=== PATIENT | male | born 1980 | race Caucasian/White ===

== ENCOUNTER 2018-05-07 13:05 | Emergency (ER) | payer MEDICARE ==
[2018-05-07] MEDS ORDERED: SODIUM CHLORIDE 0.9% 1000ML 1,000 ML IVS PRN (13:17)
[2018-05-07] MEDS ORDERED: SODIUM CHLORIDE 0.9% (FLUSH) 10 ML SYG IV PRN (13:17)
--- NOTE | 2018-05-07 13:22 | ED.PDOC ---
History of Present Illness - General Chief Complaint: General Stated Complaint: took seroquel thinking they were ibuprofen Time Seen by Provider: 05/07/18 13:21 Source: patient, family - mom Exam Limitations: no limitations - History of Present Illness Initial Comments: Almas Yoon 37 y/o male stated that he accidentally took 2 seroquel tablet dosage not known instead of Ibuprofen for his toothache.The pill bottle was given by his uncle and according to mom medicine inside the pill bottle was mixed with several medicines.He felt lightheaded;also felt heart was racing.Denies syncopal episode;no N/V. Nurse called up POISON CONTROL. Timing/Duration: 1-3 hours Severity: moderate Improving Factors: nothing Worsening Factors: nothing Associated Symptoms: other - see hpi Allergies/Adverse Reactions: Allergies Penicillins Allergy (Verified 05/07/18 13:08) Home Medications: Ambulatory Orders Clindamycin HCl 300 mg PO BID 7 Days #42 cap 05/07/18 Tramadol HCl 50 mg PO TID PRN #10 tab 05/07/18 Review of Systems - Review of Systems Constitutional: States: no symptoms reported EENTM: States: no symptoms reported Respiratory: States: no symptoms reported Cardiology: States: no symptoms reported Gastrointestinal/Abdominal: States: no symptoms reported Past Medical History (General) - Patient Medical History Hx Seizures: No Hx Stroke: No Hx Dementia: No Hx Asthma: No Hx of COPD: No Hx Cardiac Disorders: No Hx Congestive Heart Failure: No Hx Pacemaker: No Hx Hypertension: Yes Hx Thyroid Disease: No Hx Diabetes: Yes - type 1 Hx Renal Disease: No Hx Cancer: No Hx of HIV: No Hx Hepatitis C: No Hx MRSA: No Surgical History: cholecystectomy, other - shoulder,ankle - Vaccination History Hx Tetanus, Diphtheria Vaccination: Yes Hx Influenza Vaccination: No Hx Pneumococcal Vaccination: No Immunizations Up to Date: No - Social History Hx Tobacco Use: No Hx Chewing Tobacco Use: No Hx Alcohol Use: No Hx Substance Use: No Hx Substance Use Treatment: No Hx Depression: No Feels Threatened In Home Enviroment: No Feels Threatened In a Relationship: No Hx Physical Abuse: No Hx Emotional Abuse: No Hx Suspected Abuse: No - Female History Patient is a Female of Child Bearing Age (10 -59 yrs old): No Patient : No Family Medical History - Family History Mother Family History: No Known Living Status: Still Living Hx Family Asthma: No Hx Family Congestive Heart Failure: No Physical Exam - Physical Exam General Appearance: Comfortable, No apparent distress, Other - somnolent Eye Exam: bilateral normal Ears, Nose, Throat: hearing grossly normal, normal ENT inspection, normal pharynx, other - multiple decayed teeth Neck: full range of motion, supple Respiratory: lungs clear, normal breath sounds, no respiratory distress Cardiovascular/Chest: normal peripheral pulses, no murmur, tachycardia Peripheral Pulses: radial,right: 2+, radial,left: 2+ Gastrointestinal/Abdominal: non tender, soft Back Exam: no CVA tenderness, no vertebral tenderness Extremity: no pedal edema, no calf tenderness Neurologic: no motor/sensory deficits, oriented x 3 Skin Exam: normal color, warm/dry Progress - Progress Progress: 05/07/18 14:17 Vital Signs - 8 hr 05/07/18 13:13 Pulse Rate [ 132 H Left Radial] Respiratory 16 Rate Blood Pressure 89/47 [Left Arm] O2 Sat by Pulse 98 Oximetry 05/07/18 16:06 Able to eat meal served;no N/V;more alert 05/07/18 18:09 Patient has stable vital signs on discharge able to finish his meal this afternoon. - Results/Orders Results/Orders: 05/07/18 13:15 EKG STAT 05/07/18 13:17 Sodium Chloride 0.9% (Flush) [Saline Flush Syringe] 10 ml IV PRN PRN 05/07/18 13:18 IV Care:Saline Lock per Protoc QSHIFT Telemetry Q4H URINE DRUG SCREEN, 7 ASSAY Stat 05/07/18 15:00 Be Our Guest Tray ([facility] [place]) ONCE Laboratory Results - last 24 hr 05/07/18 05/07/18 05/07/18 13:10 13:27 13:27 WBC 8.2 RBC 4.44 L Hgb 13.7 L Hct 40.4 L MCV 90.8 MCH 30.7 MCHC 33.9 RDW 14.3 Plt Count 278 MPV 7.7 Absolute Neuts (auto) 5.90 Absolute Lymphs (auto) 1.70 Absolute Monos (auto) 0.50 Absolute Eos (auto) 0.10 Absolute Basos (auto) 0.00 Neutrophils % 71.7 Lymphocytes % 20.5 Monocytes % 6.3 Eosinophils % 1.1 Basophils % 0.4 PT INR PTT (SP) Sodium 134 L Potassium 4.2 Chloride 98 L Carbon Dioxide 23 Anion Gap 17.2 BUN 22 H Creatinine 1.36 H BUN/Creatinine Ratio 16.2 POC Glucose 189 H Random Glucose 184 H Serum Osmolality 276.3 Calcium 8.3 L Total Bilirubin 0.6 AST 49 H ALT 74 H Alkaline Phosphatase 233 H Creatine Kinase 27 L CK-MB (CK-2) 1.6 CK-MB (CK-2) % Not Reportable Troponin I < 0.02 Serum Total Protein 6.7 Albumin 3.5 Globulin 3.2 Albumin/Globulin Ratio 1.1 Urine Color Urine Appearance Urine pH Ur Specific [place] Urine Protein Urine Glucose (UA) Urine Ketones Urine Blood Urine Nitrite Urine Bilirubin Urine Urobilinogen Ur Leukocyte Esterase Urine RBC Urine WBC Ur Epithelial Cells Amorphous Sediment Urine Bacteria Salicylates < 4.0 Acetaminophen < 10.0 L Ethyl Alcohol 05/07/18 05/07/18 05/07/18 13:27 13:27 15:27 WBC RBC Hgb Hct MCV MCH MCHC RDW Plt Count MPV Absolute Neuts (auto) Absolute Lymphs (auto) Absolute Monos (auto) Absolute Eos (auto) Absolute Basos (auto) Neutrophils % Lymphocytes % Monocytes % Eosinophils % Basophils % PT 8.9 L INR < 0.90 L PTT (SP) 22.3 Sodium Potassium Chloride Carbon Dioxide Anion Gap BUN Creatinine BUN/Creatinine Ratio POC Glucose Random Glucose Serum Osmolality Calcium Total Bilirubin AST ALT Alkaline Phosphatase Creatine Kinase CK-MB (CK-2) CK-MB (CK-2) % Troponin I Serum Total Protein Albumin Globulin Albumin/Globulin Ratio Urine Color Yellow Urine Appearance Sl cloudy Urine pH 8.5 H Ur Specific [place] 1.015 Urine Protein 30 Urine Glucose (UA) Negative Urine Ketones Negative Urine Blood Negative Urine Nitrite Negative Urine Bilirubin Negative Urine Urobilinogen 0.2 Ur Leukocyte Esterase Trace H Urine RBC 1-3 Urine WBC 1-3 Ur Epithelial Cells 1-3 Amorphous Sediment 1+ Urine Bacteria Rare Salicylates Acetaminophen Ethyl Alcohol 0.00 05/07/18 13:15 EKG STAT 05/07/18 13:17 Sodium Chloride 0.9% (Flush) [Saline Flush Syringe] 10 ml IV PRN PRN 05/07/18 13:18 IV Care:Saline Lock per Protoc QSHIFT Telemetry Q4H 05/07/18 15:00 Be Our Guest Tray ([facility]) ONCE Laboratory Results - last 24 hr 05/07/18 05/07/18 05/07/18 13:10 13:27 13:27 WBC 8.2 RBC 4.44 L Hgb 13.7 L Hct 40.4 L MCV 90.8 MCH 30.7 MCHC 33.9 RDW 14.3 Plt Count 278 MPV 7.7 Absolute Neuts (auto) 5.90 Absolute Lymphs (auto) 1.70 Absolute Monos (auto) 0.50 Absolute Eos (auto) 0.10 Absolute Basos (auto) 0.00 Neutrophils % 71.7 Lymphocytes % 20.5 Monocytes % 6.3 Eosinophils % 1.1 Basophils % 0.4 PT INR PTT (SP) Sodium 134 L Potassium 4.2 Chloride 98 L Carbon Dioxide 23 Anion Gap 17.2 BUN 22 H Creatinine 1.36 H BUN/Creatinine Ratio 16.2 POC Glucose 189 H Random Glucose 184 H Serum Osmolality 276.3 Calcium 8.3 L Total Bilirubin 0.6 AST 49 H ALT 74 H Alkaline Phosphatase 233 H Creatine Kinase 27 L CK-MB (CK-2) 1.6 CK-MB (CK-2) % Not Reportable Troponin I < 0.02 Serum Total Protein 6.7 Albumin 3.5 Globulin 3.2 Albumin/Globulin Ratio 1.1 Urine Color Urine Appearance Urine pH Ur Specific [place] Urine Protein Urine Glucose (UA) Urine Ketones Urine Blood Urine Nitrite Urine Bilirubin Urine Urobilinogen Ur Leukocyte Esterase Urine RBC Urine WBC Ur Epithelial Cells Amorphous Sediment Urine Bacteria Salicylates < 4.0 Urine Opiates Screen Acetaminophen < 10.0 L Urine Barbiturates Ur Phencyclidine Scrn U Amphetamin/Meth Scrn U Benzodiazepines Scrn U Cocaine Metab Screen U Cannabinoids Screen Ethyl Alcohol 05/07/18 05/07/18 05/07/18 13:27 13:27 15:27 WBC RBC Hgb Hct MCV MCH MCHC RDW Plt Count MPV Absolute Neuts (auto) Absolute Lymphs (auto) Absolute Monos (auto) Absolute Eos (auto) Absolute Basos (auto) Neutrophils % Lymphocytes % Monocytes % Eosinophils % Basophils % PT 8.9 L INR < 0.90 L PTT (SP) 22.3 Sodium Potassium Chloride Carbon Dioxide Anion Gap BUN Creatinine BUN/Creatinine Ratio POC Glucose Random Glucose Serum Osmolality Calcium Total Bilirubin AST ALT Alkaline Phosphatase Creatine Kinase CK-MB (CK-2) CK-MB (CK-2) % Troponin I Serum Total Protein Albumin Globulin Albumin/Globulin Ratio Urine Color Urine Appearance Urine pH Ur Specific [place] Urine Protein Urine Glucose (UA) Urine Ketones Urine Blood Urine Nitrite Urine Bilirubin Urine Urobilinogen Ur Leukocyte Esterase Urine RBC Urine WBC Ur Epithelial Cells Amorphous Sediment Urine Bacteria Salicylates Urine Opiates Screen Negative Acetaminophen Urine Barbiturates Negative Ur Phencyclidine Scrn Negative U Amphetamin/Meth Scrn Negative U Benzodiazepines Scrn Negative U Cocaine Metab Screen Negative U Cannabinoids Screen Negative Ethyl Alcohol 0.00 05/07/18 05/07/18 15:27 18:10 WBC RBC Hgb Hct MCV MCH MCHC RDW Plt Count MPV Absolute Neuts (auto) Absolute Lymphs (auto) Absolute Monos (auto) Absolute Eos (auto) Absolute Basos (auto) Neutrophils % Lymphocytes % Monocytes % Eosinophils % Basophils % PT INR PTT (SP) Sodium Potassium Chloride Carbon Dioxide Anion Gap BUN Creatinine BUN/Creatinine Ratio POC Glucose 235 H Random Glucose Serum Osmolality Calcium Total Bilirubin AST ALT Alkaline Phosphatase Creatine Kinase CK-MB (CK-2) CK-MB (CK-2) % Troponin I Serum Total Protein Albumin Globulin Albumin/Globulin Ratio Urine Color Yellow Urine Appearance Sl cloudy Urine pH 8.5 H Ur Specific [place] 1.015 Urine Protein 30 Urine Glucose (UA) Negative Urine Ketones Negative Urine Blood Negative Urine Nitrite Negative Urine Bilirubin Negative Urine Urobilinogen 0.2 Ur Leukocyte Esterase Trace H Urine RBC 1-3 Urine WBC 1-3 Ur Epithelial Cells 1-3 Amorphous Sediment 1+ Urine Bacteria Rare Salicylates Urine Opiates Screen Acetaminophen Urine Barbiturates Ur Phencyclidine Scrn U Amphetamin/Meth Scrn U Benzodiazepines Scrn U Cocaine Metab Screen U Cannabinoids Screen Ethyl Alcohol - EKG/XRAY/CT EKG: Sinus, Tachy Comments: HR-128 XRAY: Gallbladder Sono-hepatic steatosis Departure - Departure Clinical Impression: Somnolence, Tachycardia, GABRIEL (nonalcoholic steatohepatitis), Tooth ache Drug ingestion, accidental Qualifiers: Encounter type: initial encounter Qualified Code(s): T50.901A - Poisoning by unspecified drugs, medicaments and biological substances, accidental (unintentional), initial encounter Diabetes Qualifiers: Diabetes mellitus type: type 1 Diabetes mellitus complication status: with unspecified complications Qualified Code(s): E10.8 - Type 1 diabetes mellitus with unspecified complications Time of Disposition: 18:10 Disposition: Discharge to Home or Self Care Condition: Fair Departure Forms: ED Discharge - Pt. Copy, Patient Portal Self Enrollment Instructions: Nonalcoholic Steatohepatitis (GABRIEL), Tooth Abscess (DC), Nonalcoholic Fatty Liver Disease (DC), Dental Pain (DC), Dental Pain, Quetiapine Prescriptions: Clindamycin HCl 300 mg PO BID 7 Days #42 cap Tramadol HCl 50 mg PO TID PRN #10 tab PRN Reason: Pain Home Medications: Ambulatory Orders Clindamycin HCl 300 mg PO BID 7 Days #42 cap 05/07/18 Tramadol HCl 50 mg PO TID PRN #10 tab 05/07/18 Additional Instructions: Continue with all home medications;Keep appointment with your primary Md in am 08 May 2018;return to ER as needed;Need also to see Dentist GORGE
[2018-05-07] MEDS ORDERED: SODIUM CHLORIDE 0.9% 1000ML 1,000 ML IVS ONE ×2 (13:23→13:33)
[2018-05-07] MEDS ORDERED: LACTATED RINGERS 1,000 ML ONE (14:07)
[2018-05-07] MEDS ORDERED: LACTATED RINGERS 1,000 ML IVS ONE (14:10)
--- NOTE | 2018-05-07 15:57 | US ---
EXAM DESCRIPTION: Abdomen,Limited: ULTRASOUND. CLINICAL HISTORY: abnormal LFT COMPARISON: None. TECHNIQUE: Transabdominal scannin-dimensional and Doppler modes. FINDINGS: Gallbladder: Surgically removed. No fluid in the gallbladder fossa. Non-tender with transducer pressure. Common bile duct: caliber 2.6 mm within normal limits. Liver: Heterogeneously increased echogenicity; contour liver capsule smooth where seen. No fluid around the liver. Intrahepatic biliary ducts normal caliber. Doppler hepatopedal flow and normal caliber portal vein.. Long axis right lobe 16.7 cm. Pancreas: normal size and echogenicity. Duct not seen. abdominal aorta: Normal caliber from the proximal segment to the distal bifurcation.. IVC: visualized and normal caliber. Right kidney: long axis measures 11.5 cm. Heterogeneous Echogenicity, less than the liver. Normal cortical thickness. No hydronephrosis, but minimal prominence of the right renal pelvis. Proximal right ureter not seen. IMPRESSION: 1. Borderline hepatic enlargement with mild steatosis. Normal ducts in vascularity. Smooth capsule with no ascites. 2. Prior cholecystectomy. Normal common bile duct caliber. Nontender scanning. Pancreas unremarkable. 3. Right kidney prominent extrarenal pelvis, likely hydronephrosis. Normal caliber of the abdominal aorta and IVC. Electronically signed by: Tapan Heck MD 05/07/2018 3:54 PM [facility]
[2018-05-07] MEDS ORDERED: traMADol HCL 50 MG TAB PO ONE (18:07)
[2018-05-07] MEDS ORDERED: CLINDAMYCIN HCL CAP 150 MG CAP PO ONE (18:07)
[2018-05-07 18:12] VITALS: BP 114/71; O2SAT 99
== END 2018-05-07 18:30 | disposition home or self-care (01) ==
LOC: ER 13:05
DX: T43.591A Poisoning by other antipsychotics and neuroleptics, accidental (unintentional), initial encounter (principal); R40.0 Somnolence; K75.81 Nonalcoholic steatohepatitis (NASH); K02.9 Dental caries, unspecified; E10.8 Type 1 diabetes mellitus with unspecified complications; I10 Essential (primary) hypertension; R42 Dizziness and giddiness; Z79.899 Other long term (current) drug therapy; Z88.0 Allergy status to penicillin
CPT/HCPCS: 36416; 76775; 80053; 80307; 80320; 80329; 81001; 82550; 82553; 82948; 84484; 85025; 85610; 85730; 93005; J7030; J7120

== ENCOUNTER 2018-06-20 15:12 | Observation (INO) | payer MEDICARE ==
[2018-06-20] MEDS ORDERED: SODIUM CHLORIDE 0.9% 1000ML 1,000 ML IVS ONE ×2 (15:22→16:45)
[2018-06-20] MEDS ORDERED: ONDANSETRON INJ 4 MG/2 ML VIAL IV ONE (15:23)
--- NOTE | 2018-06-20 15:58 | ED.PDOC ---
History of Present Illness - General Chief Complaint: GI Problem Stated Complaint: Pt complains of nausea and vomitting x 12 times Time Seen by Provider: 06/20/18 15:36 Information Source: patient Exam Limitations: no limitations - History of Present Illness Initial Comments: HE HAS INSULIN REQUIRING DIABETES MELLITUS, AND HAS BEEN VOMITING SINCE 11 AM. HE ALSO VOICES THAT HE IS AN ALCOHOLIC AND THAT HE QUIT COLD TURKEY 6 DAYS AGO. SOME OF THE EMESIS HAD SOME BLOOD. THE ALSO C/O EPIGASTIC PAIN, DENIES ANY FEVER. Abdominal Pain Onset Location: epigastric Pain Radiation: no radiation Quality: moderate, intermittent Timing/Duration: 4-6 hours Improving Factors: nothing Worsening Factors: eating Associated Symptoms: denies symptoms Review of Systems - Review of Systems Constitutional: States: no symptoms reported EENTM: States: no symptoms reported Respiratory: States: no symptoms reported Cardiology: States: no symptoms reported Gastrointestinal/Abdominal: States: abdominal pain, nausea, vomiting Genitourinary: States: no symptoms reported Musculoskeletal: States: no symptoms reported Skin: States: no symptoms reported Neurological: States: no symptoms reported Endocrine: States: no symptoms reported Hematologic/Lymphatic: States: no symptoms reported Past Medical History (General) - Patient Medical History Hx Seizures: No Hx Stroke: No Hx Dementia: No Hx Asthma: No Hx of COPD: No Hx Cardiac Disorders: No Hx Congestive Heart Failure: No Hx Pacemaker: No Hx Hypertension: Yes Hx Thyroid Disease: No Hx Diabetes: Yes - type 1 Hx Gastroesophageal Reflux: Yes Hx Renal Disease: No Hx Cancer: No Hx of HIV: No Hx Hepatitis C: No Hx MRSA: No Surgical History: cholecystectomy, tonsillectomy - Vaccination History Hx Tetanus, Diphtheria Vaccination: Yes Hx Influenza Vaccination: Yes Hx Pneumococcal Vaccination: No - Social History Hx Tobacco Use: Yes Cigarettes Packs Per Day: 1 Hx Chewing Tobacco Use: No Hx Alcohol Use: Yes Hx Substance Use: No Hx Substance Use Treatment: No Hx Depression: No Hx Physical Abuse: No Hx Emotional Abuse: No Hx Suspected Abuse: No - Female History Patient is a Female of Child Bearing Age (10 -59 yrs old): No Patient : No - Triage Comment ED Triage Comment: Pt states he has been vomitting since noon and has a hx of alcohol abuse where he tried to quit cold turkey 5 days ago. Family Medical History - Family History Mother Family History: No Known Living Status: Still Living Hx Family Asthma: No Hx Family Congestive Heart Failure: No Hx Family Stroke: Yes Physical Exam - Physical Exam General Appearance: Alert, Well Developed, Well Groomed, Well Nourished Eyes, Ears, Nose, Throat Exam: PERRL/EOMI, normal ENT inspection Neck: non-tender, full range of motion, supple, normal inspection Respiratory: chest non-tender, lungs clear, normal breath sounds, no respiratory distress, no accessory muscle use Cardiovascular/Chest: normal peripheral pulses, regular rate, rhythm, no edema, no gallop, no JVD Peripheral Pulses: No deficit Gastrointestinal/Abdominal: soft, no organomegaly, tenderness Back Exam: normal inspection, no CVA tenderness Extremity: normal range of motion, non-tender, normal inspection Neurologic: junior web developer II-XII nml as tested, no motor/sensory deficits, alert Skin Exam: normal color Lymphatic: no adenopathy Progress - Progress Progress: 06/20/18 17:00 HE IS STILL NAUSEATED AND VOMITING-WILL GIVE PHENERGAN. LAB WITH METABOLIC ACIDOSIS AND MODERATE KETONES. 06/20/18 17:07 CASE DISCUSSED WITH PRINCESS BAE, WILL ADMIT. - Results/Orders Results/Orders: 06/20/18 15:21 URINALYSIS Stat 06/20/18 16:41 ABG [Arterial Blood Gas] Stat 06/20/18 16:45 BOLUS Sodium Chloride 0.9% 1000ML [Ns 1000 ml] 1,000 ml IVS ONCE 06/20/18 16:52 Chest,1 View [RAD] Stat 06/20/18 16:53 Promethazine HCl Inj [Phenergan Inj] 12.5 mg Sodium Chloride 0.9% 50Ml [NS 50ml] 50 ml IVPB ONCE Laboratory Results WBC 13.6 K/mm3 (4.8-10.8) H 06/20/18 15:55 RBC 4.90 M/mm3 (4.70-6.10) 06/20/18 15:55 Hgb 14.9 gm/dL (14.0-18.0) 06/20/18 15:55 Hct 45.3 % (42.0-52.0) 06/20/18 15:55 MCV 92.5 fl (80.0-94.0) 06/20/18 15:55 MCH 30.4 pg (27.0-31.0) 06/20/18 15:55 MCHC 32.8 g/dL (33.0-37.0) L 06/20/18 15:55 RDW 15.1 % (11.5-14.5) H 06/20/18 15:55 Plt Count 612 K/mm3 (130-400) H 06/20/18 15:55 MPV 6.8 fl (7.40-10.4) L 06/20/18 15:55 Absolute Neuts (auto) 10.20 K/uL (1.8-6.8) H 06/20/18 15:55 Absolute Lymphs (auto) 2.00 K/uL (1.0-3.4) 06/20/18 15:55 Absolute Monos (auto) 1.10 K/uL (0.2-0.8) H 06/20/18 15:55 Absolute Eos (auto) 0.10 K/uL (0.0-0.4) 06/20/18 15:55 Absolute Basos (auto) 0.10 K/uL (0.0-0.1) 06/20/18 15:55 Neutrophils % 75.5 % (42.0-78.0) 06/20/18 15:55 Lymphocytes % 14.8 % (20.0-50.0) L 06/20/18 15:55 Monocytes % 8.2 % (2.0-9.0) 06/20/18 15:55 Eosinophils % 0.6 % (1.0-5.0) L 06/20/18 15:55 Basophils % 0.9 % (0.0-2.0) 06/20/18 15:55 Sodium 137 mmol/L (135-145) 06/20/18 15:55 Potassium 4.5 mmol/L (3.6-5.0) 06/20/18 15:55 Chloride 97 mmol/L (101-111) L 06/20/18 15:55 Carbon Dioxide 16 mmol/L (21-31) L 06/20/18 15:55 Anion Gap 28.5 (12-18) H 06/20/18 15:55 BUN 15 mg/dL (7-18) 06/20/18 15:55 Creatinine 1.21 mg/dL (0.6-1.3) 06/20/18 15:55 BUN/Creatinine Ratio 12.4 (10-20) 06/20/18 15:55 POC Glucose 219 mg/dL (70-105) H 06/20/18 15:19 Random Glucose 245 mg/dL (70-105) H 06/20/18 15:55 Serum Osmolality 282.8 mOsm/L (275-295) 06/20/18 15:55 Lactic Acid 1.1 mmol/L (0.5-2.2) 06/20/18 16:00 Calcium 10.3 mg/dL (8.4-10.2) H 06/20/18 15:55 Total Bilirubin 1.3 mg/dL (0.2-1.0) H 06/20/18 15:55 AST 24 IU/L (10-42) 06/20/18 15:55 ALT 41 IU/L (10-60) 06/20/18 15:55 Alkaline Phosphatase 212 IU/L (42-121) H 06/20/18 15:55 Serum Total Protein 8.7 gm/dL (6.4-8.2) H 06/20/18 15:55 Albumin 5.0 g/dl (3.2-5.5) 06/20/18 15:55 Globulin 3.7 gm/dL (2.3-3.5) H 06/20/18 15:55 Albumin/Globulin Ratio 1.4 (1.1-1.9) 06/20/18 15:55 Serum Ketones Moderate 06/20/18 15:55 Departure - Departure Clinical Impression: Diabetic acidosis without coma Qualifiers: Diabetes mellitus type: type 1 Qualified Code(s): E10.10 - Type 1 diabetes mellitus with ketoacidosis without coma Disposition: Admit Patient Condition: Fair Home Medications: Ambulatory Orders Clindamycin HCl 300 mg PO BID 7 Days #42 cap 05/07/18 Dextromethorphan HBr-Quinidine [Nuedexta] 1 cap PO BID 06/20/18 Insulin Glargine [Toujeo Solostar] 4 unit SC BEDTIME 06/20/18 Insulin Lispro [HumaLOG] 100 unit SC TIDFD 06/20/18 Lisinopril [Prinivil] 10 mg PO BID 06/20/18 Pantoprazole Tablet [Protonix] 40 mg PO ACBK 06/20/18 Decision To Admit - Decistion To Admit Decision to Admit Date: 06/20/18 Decision to Admit Time: 17:01
[2018-06-20] MEDS ORDERED: PROMETHAZINE HCL INJ 12.5 MG in SODIUM CHLORIDE 0.9% 50ML 50 ML IVPB ONE (16:53)
[2018-06-20] MEDS ORDERED: PROMETHAZINE HCL INJ 25 MG/ML VIAL ONE ×2 (16:53→18:00)
[2018-06-20] MEDS ORDERED: SODIUM CHLORIDE 0.9% 50ML 50 ML ONE ×2 (16:53→18:00)
--- NOTE | 2018-06-20 17:06 | RAD ---
EXAM DESCRIPTION: Chest,1 View CLINICAL HISTORY: 37 years Male, sob COMPARISON: Previous chest x-ray October 08, 2011 TECHNIQUE: AP portable chest. FINDINGS: Heart size is normal with normal pulmonary vascularity. No consolidating infiltrate. No pulmonary mass or worrisome nodule. No pneumothorax or pleural effusion. Bones are unremarkable. IMPRESSION: No acute process is identified in the chest. Electronically signed by: Syd Bray MD 06/20/2018 5:02 PM CDT
--- NOTE | 2018-06-20 17:22 | HP ---
SUPERVISING PHYSICIAN: Lianna Santiago MD CHIEF COMPLAINT: Nausea and vomiting. HISTORY OF PRESENT ILLNESS: This is a 37-year-old male patient with severe anxiety disorder as well as diabetes mellitus, type 1. He has had nausea and vomiting for about 24 hours. He also has a history of drinking alcohol and he quit drinking cold turkey about 6 days ago. In the Emergency Room, his workup included some labs that showed sodium 137, potassium 4.5, chloride 97, carbon dioxide 16, anion gap 28.5, BUN 15, creatinine 1.21. Glucose 245. Calcium 10.3, total bilirubin 1.3, alkaline phosphatase 212, serum total protein 8.7. CBC showed white count 13,600, hemoglobin9 14., hematocrit 45.3. Urine glucose was greater than 500. Serum ketones were moderate. Chest x-ray showed no acute process identified in the chest. In the Emergency Room, he was given several liters of fluid as well as some antiemetics. He was given some sodium bicarb. I was called for hospital admission. PAST MEDICAL HISTORY: 1. Diabetes mellitus, type 1, since the age of 24. 2. History of alcohol abuse. 3. Hypertension. 4. Severe anxiety disorder. 5. Gastroesophageal reflux disease. PAST SURGICAL HISTORY: 1. Cholecystectomy. 2. Tonsillectomy. OUTPATIENT MEDICATIONS: Per the EMR and awaiting verification. ALLERGIES: PENICILLIN. SOCIAL HISTORY: He lives in [place]. He is . He does smoke cigarettes and he quit drinking alcoholic beverages cold turkey about 6 days ago. He denies any illicit drug use. REVIEW OF SYSTEMS: GENERAL: Negative for fever, chills or weight changes. HEENT: Negative for sinus symptoms, ear pain, vision changes or sore throat. RESPIRATORY: Negative for wheezing, coughing or shortness of breath. CARDIAC: Negative for chest pain, palpitations or tachycardia. GASTROINTESTINAL: As per history of present illness. GENITOURINARY: Negative for hematuria, dysuria or polyuria. MUSCULOSKELETAL: Negative for arthralgias, myalgias. INTEGUMENT: Negative for lesions or rashes. NEUROLOGIC: Negative for headache, dizziness or seizures. PHYSICAL EXAMINATION: VITAL SIGNS: Temperature 98.6. Heart rate 125. Blood pressure as high as 170/109, now 147/102. Respiratory rate 20. O2 saturation 100% on room air. GENERAL: This is a 37-year-old male patient who is lying in his hospital bed. He is very agitated and after he has been on the floor writhing around, he will not answer questions. HEENT: Normocephalic, atraumatic. Pupils are equal and reactive. Oropharynx is clear. NECK: Supple without mass. RESPIRATORY: Essentially clear to auscultation bilaterally. CHEST: There is equal rise and fall of the chest with inspiration and expiration. CARDIOVASCULAR: Regular rate and rhythm. He is at times tachycardic. GASTROINTESTINAL: Abdomen is soft. It is diffuse tender. Bowel sounds are positive. There is no rebound tenderness or guarding. EXTREMITIES: No cyanosis, clubbing or edema. SKIN: Warm and dry. NEUROLOGIC: Awake, alert and oriented times three, although he is uncooperative. Cranial nerves II-XII are grossly intact. LABORATORY: Labs and films are as per history of present illness. IMPRESSION: 1. Diabetic ketoacidosis in a type 1 diabetic. 2. Poorly controlled diabetes mellitus, type 1, with a hemoglobin A1c of 10.4. He sees Dr. Burnett in [place]. 3. Nausea, vomiting and abdominal pain, maybe due to a viral gastroenteritis, but cannot exclude gastroparesis. 4. Severe anxiety disorder. 5. Hypertension. 6. Alcohol abuse. PLAN: We will admit the patient to the hospital. He will receive fluids and will have sliding scale insulin coverage. I will repeat his lab in the morning. I will put him on bowel rest for now until he can tolerate some foods. We need to find out his exact dosing of his long-acting insulin. He had previously been on insulin pump and it broke about a year ago and he has not gotten a new one. I encouraged him to go see his primary care physician in [place]. I have also encouraged him to stop smoking. At this point, I do not see any withdrawal symptoms, but he is extremely agitated and his said he has severe anxiety disorder as well as separation anxiety. His mother is at the bedside. I will repeat his labs in the morning. Hopefully we can discharge him tomorrow or the next day. He will need close followup with Dr. Burnett in [place] for his diabetes. I have also given him some benzodiazepines as well as some other medications to help settle him down. We will continue to monitor the patient closely and follow as needed. #[id number] [facility]
[2018-06-20] MEDS ORDERED: GLUCAGON INJ 1 MG VIAL SUBCU PRN (17:48)
[2018-06-20] MEDS ORDERED: DEXTROSE 50% 25 GM/50 ML SYG IV PRN (17:48)
[2018-06-20] MEDS ORDERED: SODIUM CHLORIDE 0.9% (FLUSH) 10 ML SYG IV PRN (17:49)
[2018-06-20] MEDS ORDERED: ONDANSETRON INJ 4 MG/2 ML VIAL IV PRN (17:49)
[2018-06-20] MEDS ORDERED: ALBUTEROL SULFATE 2.5 MG/3 ML VIAL NEB PRN (17:49)
[2018-06-20] MEDS ORDERED: IV SET AND CAP CHANGE INJ INJ SCH (18:00)
[2018-06-20] MEDS ORDERED: PROMETHAZINE HCL INJ 25 MG in SODIUM CHLORIDE 0.9% 50ML 50 ML IVPB PRN (18:00)
[2018-06-20] MEDS ORDERED: DEX 5% W/NACL 0.9% 1000ML 1,000 ML IVS ONE (18:56)
[2018-06-20] MEDS: INSULIN LISPRO 100 UNITS/ML PEN SUBCU SCH (19:00)
[2018-06-20] MEDS: DEX 5% W/NACL 0.9% 1000ML 1,000 ML IVS PRN (19:03)
[2018-06-20] MEDS ORDERED: THIAMINE HCL INJ 100 MG/ML VIAL ONE (20:40)
[2018-06-20] MEDS ORDERED: SODIUM CHLORIDE 0.9% 1000ML 1,000 ML ONE (20:40)
[2018-06-20] MEDS ORDERED: MULTIPLE VITAMIN 10 ML VIAL ONE (20:41)
[2018-06-20] MEDS: ALBUTEROL SULFATE 2.5 MG/3 ML VIAL NEB SCH (20:44)
[2018-06-20] MEDS: MULTIPLE VITAMIN INJ 10 ML, THIAMINE HCL INJ 100 MG in SODIUM CHLORIDE 0.9% 1000ML 1,00... IVS SCH (20:46)
[2018-06-20] MEDS ORDERED: PROCHLORPERAZINE INJ 10 MG/2 ML VIAL IV PRN (20:46)
[2018-06-20] MEDS ORDERED: HALOPERIDOL LACTATE INJ 5 MG/ML VIAL IM PRN (20:47)
[2018-06-20] MEDS: SODIUM CHLORIDE 0.9% (FLUSH) 10 ML SYG IV SCH (21:04)
[2018-06-21] MEDS: INSULIN LISPRO 100 UNITS/ML PEN SUBCU SCH ×5 (00:08→20:56)
[2018-06-21] MEDS ORDERED: DEX 5% W/NACL 0.9% 1000ML 1,000 ML IVS ONE (02:01)
[2018-06-21] MEDS: DEX 5% W/NACL 0.9% 1000ML 1,000 ML IVS PRN (02:04)
[2018-06-21] MEDS ORDERED: guaiFENesin ER TAB 600 MG TAB ONE (07:32)
[2018-06-21] MEDS ORDERED: ALPRAZolam 0.5 MG TAB ONE (07:33)
[2018-06-21] MEDS: ALBUTEROL SULFATE 2.5 MG/3 ML VIAL NEB SCH ×4 (07:36→20:30)
[2018-06-21] MEDS ORDERED: KCL 20MEQ/D5 1/2NS 1,000 ML IVS ONE ×2 (09:34→19:22)
[2018-06-21] MEDS ORDERED: SODIUM BICARBONATE VIAL 50 MEQ/50 ML VIAL ONE ×2 (09:36→19:22)
[2018-06-21] MEDS: [UNRECOGNIZED DRUG - OTHER] IV PRN ×2 (09:40→19:25)
[2018-06-21] MEDS: SODIUM BICARBONATE IV PRN ×2 (09:40→19:25)
[2018-06-21] MEDS: KCL IV PRN ×2 (09:40→19:25)
[2018-06-21] MEDS: SODIUM CHLORIDE 0.9% (FLUSH) 10 ML SYG IV SCH ×2 (09:50→20:59)
[2018-06-21] MEDS: LISINOPRIL 10 MG TAB PO SCH ×2 (12:12→20:59)
[2018-06-21] MEDS: CLINDAMYCIN HCL CAP 150 MG CAP PO SCH ×2 (12:12→20:58)
[2018-06-21] MEDS ORDERED: INSULIN DETEMIR 100 UNITS/ML PEN SUBCU ONE ×2 (12:49→21:00)
--- NOTE | 2018-06-21 16:53 | PN ---
DATE: 06/21/18 SUPERVISING PHYSICIAN: Troy Santiago M.D. SUBJECTIVE: The patient is calmer today. He actually answers a few questions. He does not know his evening insulin dosage, so we will need to find that out. He really would like to have something to eat, so I will advance his diet and he understands that he cannot be released until his condition improves, and he is no longer in DKA. I have also explained to him he needs to see his PCP as his blood sugars need to be better controlled and he agreed. He said he has an appointment this next month. OBJECTIVE: VITAL SIGNS: Temperature 98.1, heart rate 108, blood pressure 131/70, respiratory rate 18, O2 sat 98%. RESPIRATORY: Essentially clear to auscultation bilaterally. CARDIAC: Regular rate and rhythm. GASTROINTESTINAL: Abdomen is soft, nondistended, non-tender. Bowel sounds are positive. NEUROLOGIC: He is awake, alert and oriented times three. LABORATORY: CBC is unremarkable with sodium 138, potassium 3.9, chloride 107, carbon dioxide 15, BUN 11, creatinine 0.79. Blood sugars have run between 216 and 294. Calcium 8.3, magnesium 2. Serum ketones are moderate. On ABG, his pCO2 is 36, pO2 is 65, bicarb 21.2, O2 sat is 92.9%. All other labs and films have been reviewed via the EMR. ASSESSMENT: 1. Diabetic ketoacidosis in a type 1 diabetic. 2. Poorly controlled diabetes mellitus, type 1, with a hemoglobin A1c of 10.4. He sees Dr. Burnett in [place]. 3. Nausea, vomiting and abdominal pain, maybe due to a viral gastroenteritis, but cannot exclude gastroparesis. 4. Severe anxiety disorder. 5. Hypertension. 6. Alcohol abuse. PLAN: We will continue present supportive care. I have increased his sliding scale to every 4 hours with regular insulin coverage. I have restarted his home medications, including his long-acting insulin at 40 units in the morning. We will need to find out what his long-acting insulin for his evening dose is. I have also advanced his diet. He has tolerated a bland diet without any problems. Hopefully he can be discharged tomorrow with closely followup with his PCP, Dr. Burnett in [place], as he needs very close followup for his diabetic control. #[id number]
[2018-06-21] MEDS: PANTOPRAZOLE SODIUM TAB 40 MG PO SCH (17:07)
[2018-06-21] MEDS ORDERED: ACETAMINOPHEN W/COD #3 TAB 1 EA TAB ONE (18:08)
[2018-06-21] MEDS: ACETAMINOPHEN W/COD #3 TAB 1 EA TAB PO PRN (18:13)
[2018-06-21] MEDS ORDERED: THIAMINE HCL INJ 100 MG/ML VIAL ONE (19:31)
[2018-06-21] MEDS ORDERED: SODIUM CHLORIDE 0.9% 1000ML 1,000 ML ONE (19:31)
[2018-06-21] MEDS ORDERED: MULTIPLE VITAMIN 10 ML VIAL ONE (19:31)
[2018-06-21] MEDS: MULTIPLE VITAMIN INJ 10 ML, THIAMINE HCL INJ 100 MG in SODIUM CHLORIDE 0.9% 1000ML 1,00... IVS SCH (20:58)
[2018-06-21] MEDS ORDERED: INSULIN GLARGINE 4 UNIT SC SCH (21:00)
[2018-06-21] MEDS ORDERED: INSULIN GLARGINE SC SCH (21:00)
[2018-06-22] MEDS: INSULIN LISPRO 100 UNITS/ML PEN SUBCU SCH ×4 (00:32→11:46)
[2018-06-22] MEDS: ACETAMINOPHEN W/COD #3 TAB 1 EA TAB PO PRN ×2 (04:40→11:52)
[2018-06-22] MEDS ORDERED: KCL 20MEQ/D5 1/2NS 1,000 ML IVS ONE (05:10)
[2018-06-22] MEDS ORDERED: SODIUM BICARBONATE VIAL 50 MEQ/50 ML VIAL ONE (05:11)
[2018-06-22] MEDS: KCL IV PRN (05:19)
[2018-06-22] MEDS: SODIUM BICARBONATE IV PRN (05:19)
[2018-06-22] MEDS: [UNRECOGNIZED DRUG - OTHER] IV PRN (05:19)
[2018-06-22] MEDS: PANTOPRAZOLE SODIUM TAB 40 MG PO SCH (06:26)
[2018-06-22] MEDS: SODIUM CHLORIDE 0.9% (FLUSH) 10 ML SYG IV SCH (08:12)
[2018-06-22] MEDS: CLINDAMYCIN HCL CAP 150 MG CAP PO SCH (08:12)
[2018-06-22] MEDS: LISINOPRIL 10 MG TAB PO SCH (08:12)
[2018-06-22] MEDS: ALBUTEROL SULFATE 2.5 MG/3 ML VIAL NEB SCH ×2 (08:25→11:20)
[2018-06-22] MEDS ORDERED: INSULIN DETEMIR 100 UNITS/ML PEN SUBCU SCH (09:00)
[2018-06-22 10:08] VITALS: BP 116/70; TEMP 98.1
[2018-06-22 14:13] VITALS: O2SAT 98
--- NOTE | 2018-06-24 21:23 | DS ---
SUPERVISING PHYSICIAN: Troy Santiago M.D. ADMISSION DIAGNOSIS: 1. Diabetic ketoacidosis in a type 1 diabetic. 2. Poorly controlled diabetes mellitus, type 1, with a hemoglobin A1c of 10.4. He sees Dr. Burnett in [place]. 3. Nausea, vomiting and abdominal pain, maybe due to a viral gastroenteritis, but cannot exclude gastroparesis. 4. Severe anxiety disorder. 5. Hypertension. 6. Alcohol abuse. DISCHARGE DIAGNOSIS: 1. Diabetic ketoacidosis in a type 1 diabetic, resolved with treatment. 2. Poorly controlled diabetes mellitus, type 1, with a hemoglobin A1c of 10.4. He sees Dr. Burnett in [place]. 3. Nausea, vomiting and abdominal pain, maybe due to a viral gastroenteritis, but cannot exclude gastroparesis, showing improvement with treatment. 4. Severe anxiety disorder. 5. Hypertension. 6. Alcohol abuse with no signs of acute withdrawals. REASON FOR ADMISSION: This is a 37-year-old male patient with severe anxiety disorder as well as diabetes mellitus, type 1. He has had nausea and vomiting for about 24 hours. He also has a history of drinking alcohol and he quit drinking cold turkey about 6 days ago. In the Emergency Room, his workup included some labs that showed sodium 137, potassium 4.5, chloride 97, carbon dioxide 16, anion gap 28.5, BUN 15, creatinine 1.21. Glucose 245. Calcium 10.3, total bilirubin 1.3, alkaline phosphatase 212, serum total protein 8.7. CBC showed white count 13,600, hemoglobin9 14., hematocrit 45.3. Urine glucose was greater than 500. Serum ketones were moderate. Chest x-ray showed no acute process identified in the chest. In the Emergency Room, he was given several liters of fluid as well as some antiemetics. He was given some sodium bicarb. I was called for hospital admission. LABORATORY STUDIES: White count on admission was 13,600, hemoglobin 14.9, hematocrit 45.3, platelet count 612,000. Differential showed to be without a left shift. Prior to discharge his white count normalized to 7,400, hemoglobin 11.7, hematocrit 34.9, platelet count down to 398,000. Differential showed to be within normal limits. Blood gas on admission showed a pH of 7.3 with pCO2 of 39, pO2 of 41, bicarb 18, base excess was -6.9 but he was satting 54.5% which is a venous gas. Repeat gas on 06/21/18 which was arterial showed a normal pH of 7.39, pCO2 of 36, pCO2 was 65, bicarb 21, base excess -2.8. Chemistries on admission showed sodium 137, carbon dioxide 16, anion gas 28. Blood sugar was 245. Liver functions showed just a slightly elevated bilirubin at 1.3, otherwise all other liver functions were within normal limits. He did have an alkaline phosphatase that was slightly elevated at 212. Lactic acid was normal at 1.1. Blood sugars with treatment ranged ranged from a maximum of 399 down to 110. On the morning of discharge, the patient's electrolytes showed just a slightly low potassium at 3.2. Anion gap had normalized to 12, carbon dioxide was normal at 23, BUN 6, creatinine 0.56. Liver functions were showing to all be within normal limits. Urinalysis showed 500 glucose, greater than 160 ketones, otherwise within normal limits. Toxicology screen showed a moderate amount of ketones on admission and were negative on the morning of discharge. No microbiology specimens were submitted. RADIOLOGY: There was one chest x-ray on admission, single view chest, per radiology interpretation showed no acute process identified within the chest. HOSPITAL COURSE: Mr. Yoon was admitted for acute DKA and started on treatment per protocol. He was started on treatment with fluids and started back on his long-acting insulin. On the morning of discharge he was showing to be stable. He was ambulating without any complications. He had no nausea or vomiting and was tolerating oral intake. Vital signs were showing to be stable, temperature 98.1, pulse 90, blood pressure 116/70, respirations 16, satting 95% on room air. He was seen to be clinically stable enough to continue with outpatient management. PLAN: Mr. Yoon was discharges on 06/22/[address] Burnett in [place], [place]. He was encouraged to discuss CGM as well as insulin pump management to manage his type 1 diabetes. Until then he was to continue with sliding scale and long-acting insulin. He was encouraged to continue with fluids to prevent dehydration. I instructed him to return to the hospital should he have any worsening or concerning symptoms. Diet at discharge was diabetic diet as tolerated. Activity is to increase as tolerated. Medications at discharge included: 1. Levemir 40 units daily. No refills. 2. Reglan 10 mg before each meal as needed for nausea and vomiting, #10. No refills. All other medications, including sliding scale were continued as prior to admission. DISPOSITION: The patient is discharged home to the care of family. Condition on discharge was stable and improving. [facility][id number] [facility]
== END 2018-06-22 13:45 | disposition home or self-care (01) ==
LOC: ER 15:12 → MS 17:21 → INTOOBSV 17:21
PROVIDERS: ADMIT Nurse Practitioner Acute Care; ATTEND Nurse Practitioner Family
DX: E10.10 Type 1 diabetes mellitus with ketoacidosis without coma (principal); R11.2 Nausea with vomiting, unspecified; R10.13 Epigastric pain; F41.9 Anxiety disorder, unspecified; I10 Essential (primary) hypertension; F10.20 Alcohol dependence, uncomplicated; Y90.9 Presence of alcohol in blood, level not specified; K21.9 Gastro-esophageal reflux disease without esophagitis; E87.2 Acidosis; F17.210 Nicotine dependence, cigarettes, uncomplicated; Z79.4 Long term (current) use of insulin; Z79.899 Other long term (current) drug therapy; Z88.0 Allergy status to penicillin; Z90.49 Acquired absence of other specified parts of digestive tract
CPT/HCPCS: 96361 ×2; 96366 ×2; 96367; 96365; 96375 ×2; 96376 ×3; 96372 ×3; J7611 ×7; J1630; J2060 ×3; J2405 ×2; J0780; J2550 ×2; J7030 ×4; A4216 ×2; J3411 ×2; J1815 ×2; J7799 ×2; 82009 ×3; 80053 ×3; 82948 ×11; 83036; 36415 ×5; 81001; 85025 ×3; 83735 ×2; 36416 ×9; 83605; 71045; 94640 ×7; 94760 ×5; 82803 ×2; 36600 ×2; 82805 ×2; 99285; G0378